=== PATIENT | male | born 1970 | race Caucasian/White ===

== ENCOUNTER 2018-04-11 05:43 | Inpatient (IN) | payer OTHER ==
[~2018-04-11] VITALS: Ht 177.8 cm; Wt 101.6 kg
--- NOTE | 2018-04-11 05:49 | ED NECK/BACK PAIN COMPLAINT ---
See Addendum History of Present Illness General Chief Complaint: Low Back Pain/Injury Stated Complaint: BACK PAIN Source: patient, EMS Exam Limitations: no limitations Vital Signs & Intake/Output Vital Signs & Intake/Output Vital Signs Date Time Temp Pulse Resp B/P B/P Pulse O2 O2 Flow FiO2 Mean Ox Delivery Rate 04/11 0552 96.8 67 18 118/67 97 Room Air Allergies Coded Allergies: No Known Allergies (04/11/18) Reconcile Medications Cyclobenzaprine HCl 10 MG TABLET 1 TAB PO Q8P PRN PAIN Oxycodone HCl/Acetaminophen (Percocet 5-325 MG Tablet) 5 MG-325 MG TABLET 1-2 TAB PO Q6P PRN PAIN Triage Nurses Notes Reviewed? yes HPI: Patient presents with low back pain. Patient states his low back acts up every few months. Patient states that when it gets bad he usually goes on Percocet and Flexeril for 1-2 weeks and the pain gets better. The pain started yesterday afternoon. Patient took 2 doses of Flexeril without any relief. Patient states the pain is aching and throbbing in nature. The pain is with her in nature with waxing and waning in intensity but didn't does not go away entirely. There is no incontinence of bowel or bladder. Patient states when he is up and walking the pain radiates down both legs into his heels however when he is laying still and the pain is only in his lower back. He denies any weakness or numbness. There is no recent trauma. Past History Travel History Traveled to [place] past 21 day No Medical History Any Pertinent Medical History? see below for history Musculoskeletal: chronic back pain Surgical History Surgical History: non-contributory Psychosocial History Tobacco Use: Never used ETOH Use: occasional use Illicit Drug Use: denies illicit drug use Family History Hx Contributory? No Review of Systems Review of Systems Constitutional: Reports: no symptoms. Ears, Nose, Throat, Mouth: Reports: no symptoms. Respiratory: Reports: no symptoms. Cardiovascular: Reports: no symptoms. Musculoskeletal: Reports: see HPI, back pain. Neurological/Psychological: Reports: no symptoms. Physical Exam Physical Exam General Appearance: well developed/nourished, alert, awake, anxious, moderate distress Head: atraumatic, normal appearance Eyes: Bilateral: PERRL, EOMI. Neck: normal inspection, supple, full range of motion, no midline tenderness Respiratory: normal breath sounds, chest non-tender, no respiratory distress, lungs clear Cardiovascular: regular rate/rhythm, normal peripheral pulses Gastrointestinal: normal bowel sounds, soft, non-tender, no organomegaly Back: normal inspection, decreased range of motion, muscle spasm, no vertebral tenderness Extremities: non-tender, normal range of motion Straight Leg Raising: Right: Negative. Left: Negative. Sensory: Medial Le: L4R, L4L. Top of Foot: 2: L5R, L5L. Sole of Foot: 2: SIR, ARIANNA. Motor: Deficit L4 Right: No Deficit L4 Left: No Deficit L5 Right: No Deficit L5 Left: No Deficit S1 Right: No Deficit S1 Right: No Neurologic/Psych: no motor/sensory deficits, awake, alert, oriented x 3, normal mood/affect Core Measures CVA/TIA Diagnosis: No Progress Differential Diagnosis: herniated disc, myofascial strain, sciatica Plan of Care: Current Medications Sig/Hiren Start time Last Medication Dose Stop Time Status Admin Ketorolac 60 MG ONCE ONE 04/11 600 UNVr Tromethamine 04/11 601 (Toradol) Oxycodone/ 1 TAB ONCE ONE 04/11 600 UNVr Acetaminophen 04/11 601 (Percocet) Departure Departure Disposition: HOME OR SELF CARE Condition: Stable Clinical Impression Primary Impression: Low back pain Referrals: Mely FERNANDES,Rick Mcgovern Additional Instructions: FOLLOW UP WITH DR. BROWN FOR YOU BACK RETURN IF SYMPTOMS WORSEN OR FOR NAY CONCERNS Departure Forms: Customer Survey General Discharge Information Prescriptions: Current Visit Scripts Oxycodone HCl/Acetaminophen (Percocet 5-325 MG Tablet) 1-2 TAB PO Q6P PRN PAIN #12 TAB Cyclobenzaprine HCl 1 TAB PO Q8P PRN PAIN #20 TAB
[2018-04-11] MEDS ORDERED: CYCLOBENZAPRINE10 M1 PO (06:57)
[2018-04-11] MEDS ORDERED: PERCOCET 5-3251 EACH PO (06:57)
--- NOTE | 2018-04-11 10:03 | CT SCAN REPORT ---
EXAMINATION: CT LUMBAR SPINE WITHOUT CONTRAST CLINICAL INFORMATION: Back pain. Unable to walk. COMPARISON: None available. TECHNIQUE: Helical non-contrast CT images were obtained through the lumbar spine and 1.25 and 2.5 mm axial reconstructions were reviewed along with sagittal and coronal MPRs. DLP: 1104.09 mGy-cm FINDINGS: Lumbar spinal alignment is anatomic. The vertebral bodies demonstrate normal stature. There is no evidence of compression deformity. Posterior elements are well aligned. There is no acute fracture or subluxation. Sacroiliac joints are maintained. The paraspinal musculature is unremarkable. Visualized adrenal glands are unremarkable. There is bilateral, mild perinephric stranding. This finding is nonspecific. No renal calculus is identified bilaterally. The visualized liver is unremarkable. The visualized pancreas is unremarkable. There is mild atherosclerotic calcification of the abdominal aorta. SPINAL LEVELS: T12-L1: There is no disc herniation. No spinal canal or foraminal stenosis. L1-L2: There is no disc herniation. No spinal canal or foraminal stenosis. L2-L3: There are a shallow circumferential disc bulge. Mild facet arthropathy. No spinal canal or foraminal stenosis. L3-L4: Shallow circumferential disc bulge and facet arthropathy. No spinal canal stenosis. There is mild bilateral foraminal narrowing. L4-L5: There is a shallow circumferential disc bulge with a superimposed central disc protrusion which indents the ventral thecal sac. Spinal canal may be minimally narrowed. There is moderate bilateral foraminal stenosis. L5-S1: There is a shallow circumferential disc bulge and facet arthropathy. No spinal canal stenosis. Moderate bilateral foraminal stenosis. IMPRESSION: There is no acute osseous lumbar spine abnormality identified. There are degenerative changes of the lower lumbar spine involving L3-L4, L4-L5, and L5-S1 as described.
[2018-04-11 12:05] VITALS: BP 122/60
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
--- NOTE | 2018-04-11 13:40 | Admission Certification ---
Admission Certification Certification Statement - As attending physician, I certify that at the time of - admission, based on clinical presentation, severity of - symptoms, need for further diagnostic testing and - therapeutic interventions, and risk of adverse outcomes - without in-hospital treatment, in my clinical assessment, - this patient requires an acute hospital stay for a minimum - of two nights or longer. I have also considered psychsocial - factors such as support system, advanced age, financial - issues, cognitive issues, and failed out-patient treatments, - past re-admission history, safety of patient, and lack of - compliance as applicable. Specific rationale supporting this admission is: Severe intractable pain and inability to ambulate.
[2018-04-11 14:22] VITALS: BP 114/74
[2018-04-11 14:29] LABS: ABSOLUTE BASOPHIL COUNT 0.1 /CUMM (0.0-0.2); ABSOLUTE EOSINOPHIL COUNT 0.5 /CUMM (0.0-0.7); ABSOLUTE GRANULOCYTE CT 3.9 /CUMM (1.4-6.5); ABSOLUTE LYMPH COUNT 2.7 /CUMM (1.2-3.4); ABSOLUTE MONOCYTE COUNT 0.7 /CUMM (0.10-0.60); BASOPHIL % 0.8 % (0.0-2.0); EOSINOPHIL % 5.8 % (0-5); GRANULOCYTE % 49.8 % (42.2-75.2); HEMATOCRIT 42.4 % (42-52); MEAN CORPUSCULAR HGB 31.4 PG (27.0-31.0); MEAN CORPUSCULAR HGB CONC 34.1 G/DL (33.0-37.0); MEAN PLATELET VOLUME 7.4 FL (7.4-10.4); PLATELET COUNT 324 /CUMM (130-400); RBC DISTRIBUTION WIDTH 13.6 % (11.5-14.5); WHITE BLOOD CELL COUNT 7.8 /CUMM (4.8-10.8)
[2018-04-11 21:39] VITALS: BP 108/70
--- NOTE | 2018-04-12 06:31 | PN- Housestaff ---
Gideon Lozano 04/12/18 0631: Subjective Follow-up For: Back pain r/o Lumbar radiculopathy Subjective: I visited Daryl this morning, he was lying back in his alert and oriented 3. He had complaints about not being able to get out of his bed due to the back pain. He has been using the urinal for urination and had no bowel movement overnight. He has taken Percocet which he believes has helped his pain. He has no weakness, numbness, tingling in his lower extremities. He is not able to do SLR in his bed because it induces back pain. Review of Systems Constitutional: Reports: see HPI. Objective Last 24 Hrs of Vital Signs/I&O Vital Signs Date Time Temp Pulse Resp B/P B/P Pulse O2 O2 Flow FiO2 Mean Ox Delivery Rate 04/12 0635 97.6 63 18 112/80 95 Room Air 04/11 2139 98.4 57 17 108/70 96 Room Air 04/11 1422 98.0 76 20 114/74 96 Room Air 04/11 1205 97.9 78 20 122/60 96 Room Air 04/11 1124 97.9 62 18 110/55 97 Room Air Intake & Output 04/12 1600 04/12 0800 04/12 0000 Intake Total 240 720 Output Total 450 Balance 240 270 Intake, Oral 240 720 Output, Urine 450 Physical Exam General Appearance: Alert, Oriented X3, Cooperative, No Acute Distress Skin: No Rashes Skin Temp/Moisture Exam: Warm/Dry Sepsis Skin Exam (color): Normal for Ethnicity HEENT: Atraumatic Neck: Supple, No JVD Cardiovascular: Regular Rate, Normal S1, Normal S2 Lungs: Normal Air Movement, Minimal bilateral rales Abdomen: Normal Bowel Sounds, Soft, No Tenderness Neurological: Normal Speech, Strength at 5/5 X4 Ext, Sensation Intact, SLR +ve, Assessment/Plan Assessment: 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 He came to the hospital with chief complaint of pain in lower back that was started 2 days prior to admission. He received 1 dose of ketorolac injection 60 mg in ER. His pain is reduced and he is going to work with physical therapy today. If he can walk and tolerate activity today, he is ok to be discharged tomorrow. Severe low back pain: Plan: He is receiving cyclobenzaprine, Percocet, and lidocaine patch for pain management. MRI was done and did not show any acute severe spinal stenosis or pressure on spine. Digital rectal exam showed normal rectal sphincter tone. Problem List: 1. Low back pain Pain Ratin Pain Location: Low back pain Pain Goal: Pain 4 or less Pain Plan: Percocet Lidocaine patch Tomorrow's Labs & Rationales: Aleksandra Morris MD 04/12/18 0956: Attending MD Review Statement Attending Statement Attending MD Statement: examined this patient, discuss w/resident/PA/STRUCTURAL STEEL IRONWORKER, agreed w/resident/PA/STRUCTURAL STEEL IRONWORKER, reviewed EMR data (avail), discussed with nursing, discussed with case mgmt, reviewed images Attending Assessment/Plan: Overall patient is doing better. His pain is slightly better although he continues to have severe muscle spasms. His MRI did not show severe canal stenosis or any cord compromise. He worked with physical therapy and will follow up.
[2018-04-12 06:35] VITALS: BP 112/80
--- NOTE | 2018-04-12 09:40 | MRI REPORT ---
MR LUMBAR SPINE WITHOUT IV CONTRAST CLINICAL INFORMATION: Evaluate lumbosacral spine. Rule out cord compression. COMPARISON: Lumbar spine CT 04/11/2018. TECHNIQUE: MRI of the lumbar spine without contrast was obtained using routine sequences. FINDINGS: There are 5 nonrib-bearing lumbar-type vertebral bodies. There is moderate disc volume loss and there is disc desiccation at L5-S1. Mild disc volume loss at L3-L4. There is no bone marrow edema. There are no acute fractures. There are chronic opposing endplate Schmorl's nodes at T11-T12 and along the upper endplate of L2. The conus terminates at the L1 level. There are no significant soft tissue findings. There is no bone marrow edema within the sacrum. The SI joints are unremarkable. L1-L2: Disc contour is normal. There is no central canal stenosis and there is no foraminal stenosis. L2-L3: Disc contour is normal. There is no central canal stenosis and there is no foraminal stenosis. L3-L4: There is a diffuse annular disc bulge exhibiting a dorsal annular fissure and there is mild bilateral facet arthropathy. No central canal stenosis. There is mild foraminal encroachment bilaterally. L4-L5: Diffuse annular disc bulge exhibiting a superimposed shallow central disc protrusion that mildly indents the ventral thecal sac. There is moderate bilateral facet arthropathy. There is no central canal stenosis. There is mild to moderate bilateral foraminal stenosis. L5-S1: Small annular disc bulge exhibiting a dorsal annular fissure. Moderate right-sided facet arthropathy. There is no central canal stenosis. Mild foraminal encroachment bilaterally. IMPRESSION: - At L5-S1 there is a diffuse annular disc bulge exhibiting a dorsal annular fissure and there is moderate right-sided facet arthropathy. No central canal stenosis and mild bilateral foraminal encroachment. - At L4-L5 there is a diffuse annular disc bulge the superimposed shallow central disc protrusion that mildly indents the ventral thecal sac without central canal stenosis. Moderate bilateral facet arthropathy and mild to moderate bilateral foraminal stenosis at this level without exiting nerve root compression. - At L3-L4 there is a diffuse annular disc bulge exhibiting a dorsal annular fissure without central canal stenosis. Mild bilateral foraminal encroachment at this level. - There is no severe central canal stenosis within the lumbar spine.
--- NOTE | 2018-04-12 11:21 | Discharge Summary ---
Visit Information Visit Dates Admission Date: 04/11/18 Discharge Date: 04/13/2018 Hospital Course Course Attending Physician: Trevor FERNANDES,Aleksandra Goodrich Primary Care Physician: Dr. 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 He came to the hospital with chief complaint of pain in lower back that was started 2 days prior to admission. He received 1 dose of ketorolac injection 60 mg in ER. He works with physical therapy and was only able to stand by his bed using the walker. He still has low back pain. He will try to physical therapy again today, if he is able to tolerate activity then he will be able to be discharged. He was able to walk by himself for 300 feet based on PT evaluation. Severe low back pain: Plan: He is receiving cyclobenzaprine, Percocet, and lidocaine patch for pain management. MRI was done and did not show any acute severe spinal stenosis or pressure on spine. Digital rectal exam showed normal rectal sphincter tone. Allergies: Coded Allergies: No Known Allergies (04/11/18) Significant Procedures: Lumbar CT: FINDINGS: Lumbar spinal alignment is anatomic. The vertebral bodies demonstrate normal stature. There is no evidence of compression deformity. Posterior elements are well aligned. There is no acute fracture or subluxation. Sacroiliac joints are maintained. The paraspinal musculature is unremarkable. Visualized adrenal glands are unremarkable. There is bilateral, mild perinephric stranding. This finding is nonspecific. No renal calculus is identified bilaterally. The visualized liver is unremarkable. The visualized pancreas is unremarkable. There is mild atherosclerotic calcification of the abdominal aorta. SPINAL LEVELS: T12-L1: There is no disc herniation. No spinal canal or foraminal stenosis. L1-L2: There is no disc herniation. No spinal canal or foraminal stenosis. L2-L3: There are a shallow circumferential disc bulge. Mild facet arthropathy. No spinal canal or foraminal stenosis. L3-L4: Shallow circumferential disc bulge and facet arthropathy. No spinal canal stenosis. There is mild bilateral foraminal narrowing. L4-L5: There is a shallow circumferential disc bulge with a superimposed central disc protrusion which indents the ventral thecal sac. Spinal canal may be minimally narrowed. There is moderate bilateral foraminal stenosis. L5-S1: There is a shallow circumferential disc bulge and facet arthropathy. No spinal canal stenosis. Moderate bilateral foraminal stenosis. IMPRESSION: There is no acute osseous lumbar spine abnormality identified. There are degenerative changes of the lower lumbar spine involving L3-L4, L4-L5, and L5-S1 as described. Lumbar MRI: FINDINGS: There are 5 nonrib-bearing lumbar-type vertebral bodies. There is moderate disc volume loss and there is disc desiccation at L5-S1. Mild disc volume loss at L3-L4. There is no bone marrow edema. There are no acute fractures. There are chronic opposing endplate Schmorl's nodes at T11-T12 and along the upper endplate of L2. The conus terminates at the L1 level. There are no significant soft tissue findings. There is no bone marrow edema within the sacrum. The SI joints are unremarkable. L1-L2: Disc contour is normal. There is no central canal stenosis and there is no foraminal stenosis. L2-L3: Disc contour is normal. There is no central canal stenosis and there is no foraminal stenosis. L3-L4: There is a diffuse annular disc bulge exhibiting a dorsal annular fissure and there is mild bilateral facet arthropathy. No central canal stenosis. There is mild foraminal encroachment bilaterally. L4-L5: Diffuse annular disc bulge exhibiting a superimposed shallow central disc protrusion that mildly indents the ventral thecal sac. There is moderate bilateral facet arthropathy. There is no central canal stenosis. There is mild to moderate bilateral foraminal stenosis. L5-S1: Small annular disc bulge exhibiting a dorsal annular fissure. Moderate right-sided facet arthropathy. There is no central canal stenosis. Mild foraminal encroachment bilaterally. IMPRESSION: - At L5-S1 there is a diffuse annular disc bulge exhibiting a dorsal annular fissure and there is moderate right-sided facet arthropathy. No central canal stenosis and mild bilateral foraminal encroachment. - At L4-L5 there is a diffuse annular disc bulge the superimposed shallow central disc protrusion that mildly indents the ventral thecal sac without central canal stenosis. Moderate bilateral facet arthropathy and mild to moderate bilateral foraminal stenosis at this level without exiting nerve root compression. - At L3-L4 there is a diffuse annular disc bulge exhibiting a dorsal annular fissure without central canal stenosis. Mild bilateral foraminal encroachment at this level. - There is no severe central canal stenosis within the lumbar spine. Pertinent Lab Results: LFT: within normal limits CBC: WNL BEP, Cr, BUN: WNL Disposition Summary Disposition Principal Diagnosis: Severe low back pain Additional Diagnosis: Radiculopathy was ruled out with MRI Discharge Disposition: home or self care Discharge Instructions General Discharge Information Code Status: Full Code Patient's Diet: Regular Diet Patient's Activity: As tolerated Follow-Up Instructions/Appts: Follow up with PCP Please call your PCP if your pain has worsened Medications at Discharge Discharge Medications: Start taking the following new medications: Cyclobenzaprine HCl (Cyclobenzaprine HCl) 10 MG TABLET 1 Tablet ORAL EVERY 8 HOURS NEEDED as needed for PAIN Qty = 12 No Refills Comments: Last Taken: 04/13/18 Time: 1:13 PM Oxycodone HCl/Acetaminophen (Percocet 5-325 MG Tablet) 5 MG-325 MG TABLET 1 Tablet ORAL EVERY SIX HOURS NEEDED as needed for Low back pain Qty = 16 No Refills Comments: Last Taken: 04/13/18 Time: 11:52 AM Polyethylene Glycol 3350 (Miralax) 17 GRAM POWD.PACK 1 Packet ORAL DAILY Qty = 15 No Refills Instructions: dissolve in water. Comments: NOT GIVEN IN HOSPITAL Lidocaine (Lidoderm) 5 % ADH..PATCH 1 Patch ON SKIN Q24H Qty = 10 No Refills Instructions: Keep on for 12 hours and off for 12 hours.. Comments: Last Taken: 04/12/18 Time: 1:30 PM. Copies To: Mariah FERNANDES,Mariah
[2018-04-12] MEDS ORDERED: LIDODERM1 EACH EXT (13:45)
--- NOTE | 2018-04-12 13:58 | Patient Discharge Instructions ---
Discharge Instructions General Discharge Information You were seen/treated for: Low back pain Watch for these problems: Worsening of your low back pain Special Instructions: Please follow up with your PCP within one week of discharge Please keep the lidocaine patch on for 12 hours and then off for 12 hours. Please call your PCP if your low back pain has worsened. Please take Percocet one tablet every 6 hours if needed for back pain(max of 4 per day) Please take Flexeril one tablet every 8 hours as needed for back pain Please do not drive or operate any heavy machinery while you take these medications Diet Continue normal diet: Yes Recommended Diet: Regular Activity Full Activity/No Limits: No Activity Self Limited: Yes Acute Coronary Syndrome Inclusion Criteria At DC or during hospital stay patient has or had the following: ACS DIAGNOSIS No Discharge Core Measures Meds if any: Prescribed or Continued at Discharge Meds if any: NOT Prescribed or Continued at Discharge Congestive Heart Failure Inclusion Criteria At DC or during hospital stay patient has or had the following: CHF DIAGNOSIS No Discharge Core Measures Meds if any: Prescribed or Continued at Discharge Meds if any: NOT Prescribed or Continued at Discharge Cerebrovascular accident Inclusion Criteria At DC or during hospital stay patient has or had the following: CVA/TIA Diagnosis No Discharge Core Measures Meds if any: Prescribed or Continued at Discharge Meds if any: NOT Prescribed or Continued at Discharge Venous thromboembolism Inclusion Criteria VTE Diagnosis No VTE Type NONE VTE Confirmed by (Test) NONE Discharge Core Measures - Per Current guidelines, there needs to be overlap - treatment for the first 5 days of Warfarin therapy. - If discharged on Warfarin prior to 5 days of - overlap therapy, the patient will need to be - assessed for post discharge needs including - *Post discharge parental anticoagulation - *Warfarin and/or parental anticoagulation education - *Follow up date to check INR post discharge At least 5 days overlap therapy as Inpatient No Meds if any: Prescribed or Continued at Discharge Note: Overlap Therapy is Warfarin and Anticoagulant Meds if any: NOT Prescribed or Continued at Discharge
[2018-04-12 14:06] VITALS: BP 122/70
[2018-04-12 21:14] VITALS: BP 118/76
[2018-04-13 06:25] VITALS: BP 102/68
--- NOTE | 2018-04-13 06:38 | PN- Housestaff ---
Gideon Lozano 04/13/18 0637: Subjective Follow-up For: Back pain r/o Lumbar radiculopathy Subjective: I visited the patient this morning, he was lying back in his bed. He was alert and oriented 3 in no acute distress. He has worked with physical therapy and was able to get out of bed and this time next to the bed using the walker. 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 I explained to him that there was no pressure, stenosis, or mass-effect on the spinal cord based on his MRI report. Review of Systems Constitutional: Reports: see HPI. Objective Last 24 Hrs of Vital Signs/I&O Vital Signs Date Time Temp Pulse Resp B/P B/P Pulse O2 O2 Flow FiO2 Mean Ox Delivery Rate 04/13 0625 98.0 64 18 102/68 94 04/12 2114 98.4 61 16 118/76 93 Room Air 04/12 1406 98.3 63 18 122/70 94 Room Air Intake & Output 04/13 1600 04/13 0800 04/13 0000 Intake Total 490 480 Output Total 1350 675 Balance -860 -195 Intake, IV 10 Intake, Oral 480 480 Number 0 Bowel Movements Output, Urine 1350 675 Physical Exam General Appearance: Alert, Oriented X3, Cooperative, No Acute Distress Skin: No Rashes Skin Temp/Moisture Exam: Warm/Dry Sepsis Skin Exam (color): Normal for Ethnicity HEENT: Atraumatic Neck: Supple, No JVD, No LAD Cardiovascular: Regular Rate, Normal S1, Normal S2 Lungs: Normal Air Movement, Minimal bilateral rales Abdomen: Normal Bowel Sounds, Soft, No Tenderness Neurological: Normal Speech Extremities: Normal Pulses, No Tenderness/Swelling Vascular: Normal Pulses, Pulses Symmetrical Assessment/Plan Assessment: 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 He came to the hospital with chief complaint of pain in lower back that was started 2 days prior to admission. He received 1 dose of ketorolac injection 60 mg in ER. He works with physical therapy and was only able to stand by his bed using the walker. He still has low back pain. He will try to physical therapy again today, if he is able to tolerate activity then he will be able to be discharged. He was able to walk by himself for 300 feet based on PT evaluation. Severe low back pain: Plan: He is receiving cyclobenzaprine, Percocet, and lidocaine patch for pain management. MRI was done and did not show any acute severe spinal stenosis or pressure on spine. Digital rectal exam showed normal rectal sphincter tone. Problem List: 1. Low back pain Pain Ratin Pain Location: Low back Pain Goal: Pain 4 or less Pain Plan: Percocet Cyclobenzaprine Tomorrow's Labs & Rationales: MIGEL Murray MD,Aleksandra 04/13/18 1041: Attending MD Review Statement Attending Statement Attending MD Statement: examined this patient, discuss w/resident/PA/PROCUREMENT REPRESENTATIVE, agreed w/resident/PA/PROCUREMENT REPRESENTATIVE, reviewed EMR data (avail), discussed with nursing, discussed with case mgmt, reviewed images Attending Assessment/Plan: Patient is still in pain. He does not want to go to rehab and feels that he can work with physical therapy. We are controlling his pain with Percocet and actively working with PT with the idea of sending him home tomorrow. His MRI was negative for severe canal stenosis.
[2018-04-13 14:00] VITALS: BP 112/72
[2018-04-13] MEDS ORDERED: PERCOCET 5-3251 EACH PO ×2 (15:24→15:32)
[2018-04-13] MEDS ORDERED: MIRALAX17 G1 PO ×2 (15:24→15:53)
[2018-04-13] MEDS ORDERED: CYCLOBENZAPRINE10 M1 PO (15:32)
[2018-04-13] MEDS ORDERED: LIDODERM1 EACH EXT (15:53)
== END 2018-04-13 16:57 | DRG 552 ==
LOC: ERH 05:43 → ERHI 10:28 → 2NB 10:28 → ENRESERV 10:56 → ENTRNSPT 11:45 → EDTRNSPT 11:53 → EDTRNSPTSTS 11:53 → 2NB 11:59 → CMPTRNSPT 12:31 → 2NB 13:41 → ENTRNSPT 04-13 16:44 → EDTRNSPTSTS 04-13 16:47 → EDTRNSPT 04-13 16:47 → 2NB 04-13 16:57 → CMPTRNSPT 04-13 17:08
PROVIDERS: Internal Medicine Endocrinology, Diabetes & Metabolism
DX: M48.061 Spinal stenosis, lumbar region without neurogenic claudication (principal); R26.2 Difficulty in walking, not elsewhere classified; Z72.0 Tobacco use; M62.830 Muscle spasm of back; M54.5 Low back pain
CPT/HCPCS: 2NBP; 72148; 82436; 96372; 97116-GO; 97161-GP; 97530-GO; 97530-GP; J1644; J1885